=== PATIENT | male | born 1960 | race Two or more races ===

== ENCOUNTER 2023-03-08 18:56 | Inpatient (IN) | payer OTHER ==
[~2023-03-08] VITALS: Ht 172.7 cm; Wt 79.4 kg
[2023-03-08 19:50] LABS: BASOPHILS # (AUTO) 0.1 K/UL (0.0-0.2); BASOPHILS % (AUTO) 1.9 % (0.0-2.0); DIFFERENTIAL COMMENT 0; HEMATOCRIT 32.3 % (36.7-47.1); HEMOGLOBIN 11.3 g/dL (12.5-16.3); LYMPHOCYTES # (AUTO) 0.6 K/uL (0.8-4.8); LYMPHOCYTES % (AUTO) 15.1 % (20.5-51.5); MEAN CORPUSCULAR HEMOGLOBIN 33.9 uug (23.8-33.4); MEAN CORPUSCULAR HGB CONC 35 g/dL (32.5-36.3); MEAN CORPUSCULAR VOLUME 97.3 fL (73.0-96.2); MONOCYTES # (AUTO) 0.2 K/uL (0.1-1.30); MONOCYTES % (AUTO) 4.3 % (0.0-11.0); NEUTROPHILS # (AUTO) 3.2 K/uL (1.8-8.9); NEUTROPHILS % (AUTO) 78.7 % (38.5-71.5); PLATELET COUNT (AUTO) 105 K/uL (152-348); RED BLOOD CELL COUNT(AUTO) 3.32 MIL/uL (4.06-5.63); RED CELL DISTRIBUTION WIDTH 16.8 % (12.1-16.2); WHITE BLOOD COUNT (AUTO) 4.1 K/uL (3.6-10.2)
[2023-03-08 19:59] LABS: *BILIRUBIN,URIN NEGATIVE (NEGATIVE); *BLOOD, URINE NEGATIVE (NEGATIVE); *CLARITY,URINE CLEAR (CLEAR); *COLOR,URINE YELLOW (YELLOW); *KETONES,URINE NEGATIVE (NEGATIVE); *PROTEIN,URINE NEGATIVE (NEGATIVE); *UROBILINOGEN,URINE 0.2 E.U./dl (NORMAL); LEUKOCYTE ESTERASE ,URINE NEGATIVE (NEGATIVE); NITRITE, URINE NEGATIVE (NEGATIVE); PH,URINE 6.5 (5.0-8.0); UGLUCOSE NEGATIVE (NEGATIVE)
[2023-03-08 20:02] LABS: CALCIUM 8.9 mg/dL (8.5-10.1); CREATININE 0.7 mg/dL (0.6-1.3)
[2023-03-08 20:07] LABS: ALBUMIN 3.4 g/dL (3.4-5.0); TOTAL PROTEIN, SERUM 5.8 g/dL (6.4-8.2)
[2023-03-08] MEDS ORDERED: POTASSIUM CHLORIDE 20 MEQ TAB.PRT.SR PO ONE (20:15)
[2023-03-08 20:29] LABS: MAGNESIUM 1.8 mg/dL (1.8-2.4); PHOSPHOROUS 2.7 mg/dL (2.5-4.9)
[2023-03-08] MEDS ORDERED: MEMA10TA PO (20:33)
[2023-03-08] MEDS ORDERED: HYDR2TAB4 PO (20:33)
[2023-03-08] MEDS ORDERED: LEVE500T9 PO (20:33)
[2023-03-08] MEDS ORDERED: MAGNESIUM HYDROXIDE 30 ML LIQUID UDC PO PRN (22:30)
[2023-03-08] MEDS ORDERED: DEXAMETHASONE SOD PHOSPHATE 4 MG INJ IV ONE (22:30)
[2023-03-08] MEDS ORDERED: ONDANSETRON 4 MG/2 ML VIAL IV PRN (22:30)
[2023-03-08] MEDS ORDERED: ACETAMINOPHEN 325 MG TABLET PO PRN (22:30)
[2023-03-08] MEDS ORDERED: HYDROCODONE/APAP 5-325MG TABLET PO PRN (22:30)
[2023-03-08] MEDS ORDERED: HYDROMORPHONE 1 MG/1 ML DISP.SYRIN IV PRN (22:30)
[2023-03-09 01:45] VITALS: BP 100/49; TEMP 97.8; O2SAT 98
[2023-03-09] MEDS ORDERED: DEXAMETHASONE SOD PHOSPHATE 4 MG INJ IV ONE (02:15)
[2023-03-09 04:15] VITALS: BP 119/67; TEMP 97.6; O2SAT 98
[2023-03-09] MEDS: PANTOPRAZOLE SODIUM 40 MG TABLET.DR PO SCH ×2 (06:15→09:35)
[2023-03-09 07:12] LABS: BASOPHILS % (AUTO) 0.1 % (0.0-2.0); HEMATOCRIT 32.3 % (36.7-47.1); HEMOGLOBIN 11.5 g/dL (12.5-16.3); LYMPHOCYTES # (AUTO) 0.8 K/uL (0.8-4.8); LYMPHOCYTES % (AUTO) 22.2 % (20.5-51.5); MEAN CORPUSCULAR HEMOGLOBIN 34.7 uug (23.8-33.4); MEAN CORPUSCULAR HGB CONC 36 g/dL (32.5-36.3); MEAN CORPUSCULAR VOLUME 97.2 fL (73.0-96.2); MONOCYTES # (AUTO) 0.1 K/uL (0.1-1.30); MONOCYTES % (AUTO) 2.6 % (0.0-11.0); NEUTROPHILS # (AUTO) 2.7 K/uL (1.8-8.9); NEUTROPHILS % (AUTO) 75.1 % (38.5-71.5); PLATELET COUNT (AUTO) 110 K/uL (152-348); RED BLOOD CELL COUNT(AUTO) 3.32 MIL/uL (4.06-5.63); RED CELL DISTRIBUTION WIDTH 16.7 % (12.1-16.2); WHITE BLOOD COUNT (AUTO) 3.6 K/uL (3.6-10.2)
[2023-03-09 07:22] LABS: DIFFERENTIAL COMMENT 1
[2023-03-09 07:44] LABS: THYROID STIMULATING HORMONE 0.538 mIU/mL (0.358-3.740)
[2023-03-09 07:49] LABS: ALANINE AMINOTRANSFERASE 281 U/L (16-63); ALBUMIN 3.6 g/dL (3.4-5.0); ALKALINE PHOSPHATASE 163 U/L (50-136); ASPARTATE AMINOTRANSFERASE 54 U/L (15-37); BILIRUBIN,TOTAL 1.1 mg/dL (0.2-1.0); CALCIUM 8.8 mg/dL (8.5-10.1); CARBON DIOXIDE 27 mmol/L (21-32); CHLORIDE 105 mmol/L (98-107); CHOLESTEROL 172 mg/dL (<200); CREATININE 0.6 mg/dL (0.6-1.3); GLUCOSE 142 mg/dL (74-106); HDL CHOLESTEROL 67 mg/dL (40-60); MAGNESIUM 2.1 mg/dL (1.8-2.4); PHOSPHOROUS 2.3 mg/dL (2.5-4.9); POTASSIUM 3.9 mmol/L (3.5-5.1); SODIUM SERUM 140 mmol/L (136-145); TOTAL PROTEIN, SERUM 6.5 g/dL (6.4-8.2); TRIGLYCERIDES 84 MG/DL (30-150); UREA NITROGEN, BLOOD 6 mg/dL (7-18)
[2023-03-09] MEDS ORDERED: levETIRAcetam 500 MG TABLET PO SCH (09:00)
[2023-03-09] MEDS ORDERED: ENOXAPARIN SODIUM 40 MG/0.4 ML DISP.SYRIN SQ SCH (09:00)
[2023-03-09] MEDS ORDERED: MEMANTINE HCL 10 MG TABLET PO SCH (09:00)
[2023-03-09 09:12] LABS: IRON, SERUM 61 ug/dL (50-175)
[2023-03-09] MEDS ORDERED: HYDROMORPHONE 1 MG/1 ML DISP.SYRIN IV PRN (09:45)
[2023-03-09 11:14] VITALS: BP 112/63; TEMP 98.2; O2SAT 97
[2023-03-09] MEDS ORDERED: DEXAMETHASONE SOD PHOSPHATE 10 MG INJ IV SCH (13:00)
[2023-03-09] MEDS: DEXAMETHASONE SOD PHOSPHATE 4 MG INJ IV SCH ×2 (13:13→17:09)
[2023-03-09 15:02] VITALS: BP 104/80; TEMP 98.4; O2SAT 98
[2023-03-09 15:07] LABS: *RHEUMATOID FACTOR SCREEN NEGATIVE (NEGATIVE)
[2023-03-09] MEDS ORDERED: NEUTRA PHOS PACKET PO ONE (16:00)
[2023-03-09] MEDS ORDERED: HYDR2TAB4 PO (16:32)
[2023-03-09] MEDS ORDERED: DOCUSATE SODIUM 250 MG CAPSULE PO SCH (21:00)
[2023-03-09] MEDS ORDERED: DOCUSATE SODIUM 100 MG CAPSULE PO SCH (21:00)
== END 2023-03-09 19:00 | disposition short-term general hospital (02) | DRG 543 ==
LOC: ER 18:57 → TELE3 22:18
PROVIDERS: ADMIT Internal Medicine; ATTEND Internal Medicine
DX: M84.58XA Pathological fracture in neoplastic disease, other specified site, initial encounter for fracture (principal); C90.00 Multiple myeloma not having achieved remission; D61.818 Other pancytopenia; E87.6 Hypokalemia; R20.1 Hypoesthesia of skin; M89.9 Disorder of bone, unspecified; R74.01 Elevation of levels of liver transaminase levels; Z92.3 Personal history of irradiation; Z86.19 Personal history of other infectious and parasitic diseases; Z88.1 Allergy status to other antibiotic agents; G40.909 Epilepsy, unspecified, not intractable, without status epilepticus; G93.89 Other specified disorders of brain; Z79.899 Other long term (current) drug therapy; R19.7 Diarrhea, unspecified; D63.0 Anemia in neoplastic disease; F03.90 Unspecified dementia, unspecified severity, without behavioral disturbance, psychotic disturbance, mood disturbance, and anxiety; M48.00 Spinal stenosis, site unspecified
CPT/HCPCS: 36415; 70450; 71045; 72125; 72131; 82746; 82784; 83550; 83690; 83735; 84100; 84155; 84165; 84443; 85025; 85610; 86038; 86334; 86430; 86706; 86803; 87340; A4663; G0378; J1100; J1650

== ENCOUNTER 2023-12-17 18:16 | Emergency (ER) | payer OTHER ==
[~2023-12-17] VITALS: Ht 172.7 cm; Wt 65.8 kg
[~2023-12-17 18:16] MED LIST: HYDR2TAB4 PO; LEVE500T9 PO; MEMA10TA PO
[2023-12-17] MEDS ORDERED: DEXA4TAB PO (18:28)
[2023-12-17] MEDS ORDERED: BENZ-38 PO (18:28)
[2023-12-17] MEDS: CEFTAZIDIME 1 G in IV DEXTROSE 5% 50 ML IV ONE (18:30)
[2023-12-17] MEDS ORDERED: PIPERACILLIN/TAZOBACTAM/D5W 50 ML IV ONE (18:48)
[2023-12-17 18:52] LABS: HEMOGLOBIN 10.9 g/dL (12.5-16.3); MONOCYTES # (AUTO) 0.2 K/uL (0.1-1.30); NEUTROPHILS # (AUTO) 4.7 K/uL (1.8-8.9); WHITE BLOOD COUNT (AUTO) 5.6 K/uL (3.6-10.2)
[2023-12-17] MEDS: IV NORMAL SALINE 1000 ML BAG IV ONE (18:55)
[2023-12-17 18:56] LABS: BASOPHILS % (AUTO) 0.5 % (0.0-2.0); HEMATOCRIT 32.9 % (36.7-47.1); LYMPHOCYTES # (AUTO) 0.7 K/uL (0.8-4.8); LYMPHOCYTES % (AUTO) 12.3 % (20.5-51.5); MEAN CORPUSCULAR HEMOGLOBIN 31.3 uug (23.8-33.4); MEAN CORPUSCULAR HGB CONC 33 g/dL (32.5-36.3); MEAN CORPUSCULAR VOLUME 94.3 fL (73.0-96.2); MONOCYTES % (AUTO) 3.8 % (0.0-11.0); NEUTROPHILS % (AUTO) 83.4 % (38.5-71.5); PLATELET COUNT (AUTO) 258 K/uL (152-348); RED BLOOD CELL COUNT(AUTO) 3.48 MIL/uL (4.06-5.63)
[2023-12-17] MEDS: PIPERACILLIN SODIUM/TAZOBACTAM 3.375 G in IV DEXTROSE 5% 50 ML IV ONE (18:59)
[2023-12-17 19:02] LABS: CALCIUM 9.1 mg/dL (8.5-10.1); CARBON DIOXIDE 27 mmol/L (21-32); CHLORIDE 99 mmol/L (98-107); CREATININE 0.7 mg/dL (0.6-1.3); GLUCOSE 104 mg/dL (74-106); POTASSIUM 3.8 mmol/L (3.5-5.1); SODIUM SERUM 137 mmol/L (136-145); UREA NITROGEN, BLOOD 17 mg/dL (7-18)
[2023-12-17 19:05] LABS: DIFFERENTIAL COMMENT 1
[2023-12-17] MEDS ORDERED: CEFTAZIDIME 1 G VIAL ONE (19:11)
[2023-12-17 19:15] LABS: ALANINE AMINOTRANSFERASE 22 U/L (16-63); ALBUMIN 3.1 g/dL (3.4-5.0); ALKALINE PHOSPHATASE 65 U/L (50-136); ASPARTATE AMINOTRANSFERASE 7 U/L (15-37); BILIRUBIN,DIRECT 0.3 mg/dL (0.0-0.2); BILIRUBIN,TOTAL 0.8 mg/dL (0.2-1.0); NT-PRO BNP 1369 pg/mL (0-125); TOTAL PROTEIN, SERUM 6.3 g/dL (6.4-8.2)
[2023-12-17] MEDS ORDERED: IOHEXOL 300MG/ML 100 ML INFUS..BTL ONE (20:46)
[2023-12-17] MEDS ORDERED: SWABABLE VALVE TRANSFER SET EA MC ONE (20:46)
[2023-12-17] MEDS ORDERED: IV NORMAL SALINE 250 ML IV ONE (20:47)
[2023-12-17 20:54] LABS: BAND % (MANUAL) 20 % (0-10); LYMPHOCYTES % (MANUAL) 13 % (20-40); MONOCYTES % (MANUAL) 2 % (2-10); NEUTROPHILS % (MANUAL) 65 % (42-75); PLATELET ESTIMATE ADEQUATE
[2023-12-17 20:55] LABS: ANISOCYTOSIS 1+
[2023-12-17] MEDS: LIDOCAINE 2% (GLYDO= UROJET) 10 ML JELLY MM ONE (21:46)
[2023-12-17 21:58] LABS: *BILIRUBIN,URIN NEGATIVE (NEGATIVE); *BLOOD, URINE 1+ (NEGATIVE); *CLARITY,URINE CLEAR (CLEAR); *COLOR,URINE YELLOW (YELLOW); *KETONES,URINE NEGATIVE (NEGATIVE); *PROTEIN,URINE NEGATIVE (NEGATIVE); *UROBILINOGEN,URINE 0.2 E.U./dl (NORMAL); LEUKOCYTE ESTERASE ,URINE NEGATIVE (NEGATIVE); NITRITE, URINE NEGATIVE (NEGATIVE); PH,URINE 5.5 (5.0-8.0); UGLUCOSE NEGATIVE (NEGATIVE)
[2023-12-17 22:07] LABS: BACTERIA,URINE NONE SEEN /HPF (NONE SEEN); SQUAMOUS EPITHELIAL CELL,UR FEW /HPF (NONE SEEN); WBC,URINE 0-3 /HPF (0-3)
[2023-12-17 22:46] VITALS: O2SAT 96
== END 2023-12-18 02:01 | disposition admitted as inpatient to this hospital (09) ==
LOC: ER 18:17
DX: U07.1 COVID-19 (principal); J96.00 Acute respiratory failure, unspecified whether with hypoxia or hypercapnia; R41.0 Disorientation, unspecified; F03.90 Unspecified dementia, unspecified severity, without behavioral disturbance, psychotic disturbance, mood disturbance, and anxiety; Z79.891 Long term (current) use of opiate analgesic; Z79.899 Other long term (current) drug therapy; Z88.1 Allergy status to other antibiotic agents
CPT/HCPCS: 36415; 70030-TC; 70450; 71045; 71275; 83605; 84484; 85025; 85730; 87040; 93005; A4606; A4663; C1758; J0713; J2543; J7040; Q9967